=== PATIENT | male | born 1955 | race Caucasian/White ===

== ENCOUNTER → 2017-04-02 | Outpatient (CLI) | payer OTHER | LOC: BRMIMAGING 12:38 | PROVIDERS: ATTEND Internal Medicine Rheumatology | DX: M19.041 Primary osteoarthritis, right hand (principal); M19.042 Primary osteoarthritis, left hand; M17.12 Unilateral primary osteoarthritis, left knee; M11.232 Other chondrocalcinosis, left wrist | CPT/HCPCS: 73120-PO; 73562-PO ==